=== PATIENT | male | born 1965 | race African-American/Black ===

== ENCOUNTER 2017-09-11 10:06 | Observation (INO) | payer BC, OTHER ==
[2017-09-11 10:48] LABS: #Basophils 0.1 thou/uL (0.0-0.2); #Eosinphils 0.2 thou/uL (0.0-0.7); #Lymphocytes 2.3 thou/uL (1.20-3.40); #Monocytes 0.3 thou/uL (0.11-0.59); #Neutrophils 3.8 thou/uL (1.40-6.50); %Basophils 1.1 % (0.0-1.0); %Eosinophils 2.4 % (0.0-10.0); %Lymphocytes 34.7 % (21.0-51.0); %Monocytes 4.5 % (0.0-10.0); %Neutrophils 57.4 % (42.0-75.0); Hemoglobin 13.5 g/dL (14.0-18.0); Mean Corpuscular HGB CONC 33.2 g/dL (32.0-36.0); Mean Corpuscular Hemoglobin 30.7 pg (27.0-31.0); Mean Corpuscular Volume 92.5 fl (80.0-94.0); Mean Platelet Volume 7.5 fL (7.4-10.4); Platelet Count 256 thou/uL (130-400); RBC Distribution Width 12.6 % (11.5-14.5); Red Blood Cell (RBC) Count 4.39 mill/uL (4.70-6.10); White Blood Cell (WBC) Count 6.6 thou/uL (4.8-10.8)
[2017-09-11 11:09] LABS: ALT (SGPT) 22 U/L (8-55); AST (SGOT) 27 U/L (5-34); Alkaline Phosphatase 68 U/L (40-150); Anion Gap 14 mmol/L (10-20); BUN (Urea Nitrogen) 13 mg/dL (8.4-25.7); Bilirubin, Total 0.4 mg/dL (0.2-1.2); CK (CPK) 201 U/L (30-200); Calc. Creatinine Clearance 0 mL/min (70-130); Calcium 9.9 mg/dL (7.8-10.44); Carbon Dioxide 26 mmol/L (22-29); Chloride 103 mmol/L (98-107); Estimated GFR-MDRD Greater than 90; Globulin 3.4 g/dL (2.4-3.5); Glucose 105 mg/dL (70-105); Potassium 3.5 mmol/L (3.5-5.1); Protein, Total 7.4 g/dL (6.0-8.3); Sodium 139 mmol/L (136-145)
[2017-09-11 11:14] LABS: CKMB 2.2 ng/mL (0-6.6)
--- NOTE | 2017-09-11 12:55 | RAD ---
FRONTAL VIEW CHEST: INDICATIONS: Chest pain. Dyspnea. COMPARISON: 12/09/2003 FINDINGS: There is no consolidation, effusion, or pneumothorax. The cardiac silhouette is within normal limits in size. The osseous structures are intact. IMPRESSION: No focal consolidation. POS: [facility]ALRETTE
[2017-09-11 14:41] LABS: Troponin I 0.016 ng/mL (< 0.028)
[2017-09-11] MEDS ORDERED: Acetaminophen 325 MG TAB PO PRN ×2 (14:47→14:48)
[2017-09-11] MEDS ORDERED: Ondansetron HCl/PF 4 MG/2 ML Vial IVP PRN (14:47)
[2017-09-11] MEDS ORDERED: Ondansetron ODT 4 MG TAB SL PRN (14:47)
[2017-09-11] MEDS ORDERED: Nitroglycerin 0.4 MG TAB (25 Tab Bottle) SL PRN (14:48)
[2017-09-11] MEDS ORDERED: Ondansetron ODT 4 MG TAB PO PRN (14:48)
[2017-09-11 14:54] VITALS: BMI 32.1
[2017-09-11 15:13] LABS: Phosphorus 3.7 mg/dL (2.3-4.7)
[2017-09-11] MEDS ORDERED: hydrALAZINE 20 MG/ML VIAL SLOW IVP PRN (15:19)
[2017-09-11 17:05] LABS: Troponin I Less than 0.010 ng/mL (< 0.028)
--- NOTE | 2017-09-11 18:35 | HP-2 ---
CODE STATUS: FULL. PRIMARY CARE PHYSICIAN: Bindu martin. ATTENDING: Mar Dennis MD RESIDENT: Jae Orantes MD CHIEF COMPLAINT: Shortness of breath and chest pressure. HISTORY OF PRESENT ILLNESS: This is a 52-year-old male who presents with shortness of breath and chest pressure since awakening this morning. It is not as normal. He states he was totally asymptomatic yesterday. He notes no nausea , vomiting, or diarrhea. He also notes no recent illness. He denies any real pain anywhere. He does state that he is able to do his full activity level. He says that the symptoms have not changed either at rest or when he is stressing himself. He does admit to some associated left arm throbbing during this time. He had similar episodes previously and was worked up at that time at outside facilities. He has no other complaints today. In the ER, he was given an aspirin 325 mg. PAST MEDICAL HISTORY: Significant for hypertension. PAST SURGICAL HISTORY: Right wrist injury and heart catheterization in 2013. ALLERGIES: None. MEDICATIONS: He is on losartan 100 mg, Lipitor 40 mg, and HCTZ 25 mg. He will be bringing his medications from home to confirm his dosages. FAMILY HISTORY: Hypertension. SOCIAL HISTORY: He had a [id number] smoking history, but he quit 13-1/2 years ago. Alcohol, he drinks more than 5 drinks per week, but less than 10. He drinks socially. He denies any drug use. 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 REVIEW OF SYSTEMS: GENERAL: He denies any fevers, chills, weight changes, night sweats, or fatigue. EYES: Denies any vision changes or eye pain. ENT: Denies nasal congestion, rhinorrhea, or sore throat. RESPIRATORY: Denies cough, congestion. He does admit to shortness of breath. CARDIOVASCULAR: He does admit to the chest pressure and palpitations. He denies any edema or orthopnea. GASTROINTESTINAL: Denies nausea, vomiting, diarrhea, constipation, abdominal pain, or GI bleeding. GENITOURINARY: Denies incontinence, dysuria, polyuria, or discharge. SKIN: He denies rashes, lesions, jaundice, itching. MUSCULOSKELETAL: He does admit to pain, swelling, and arthritis of his knees longstanding. NEUROLOGIC: Denies any weakness, numbness, syncope, or seizures. PSYCHIATRIC: He denies any anxiety or depression. PHYSICAL EXAMINATION: VITAL SIGNS: Blood pressure is 151/86, pulse was 102, respirations 22, temperature max 98.5, pulse ox 94% on room air, current weight is 99 kg. GENERAL: He is alert and oriented x4, well developed, and appropriately interactive. EYES: PERRLA. Conjunctivae within normal limits. ENT: Tympanic membranes are pearly feliciano without bulging or erythema. Nasal mucosa and oropharynx within normal limits. NECK: Supple. No lymphadenopathy. No thyromegaly. CARDIOVASCULAR: Regular rate and rhythm. No murmurs. No gallops. Radial and pedal pulses equal bilaterally. RESPIRATORY: Normal effort. No retractions. Clear to auscultation bilaterally. SKIN: Warm and dry. ABDOMEN: Soft, nontender to palpation. Bowel sounds present x4. No mass or distention. EXTREMITIES: No clubbing, cyanosis or edema. MUSCULOSKELETAL: Structure, tone, muscle strength, and range of motion within normal limits. NEUROLOGIC: No focal neurologic deficit. Sensation and cranial nerves II-XII grossly intact. GCS was 15. PSYCHIATRIC: Appropriate. LABORATORY DATA: White blood cell count of 6.6, platelet count 256, hemoglobin 13.5, hematocrit 40.6, MCV 92.5. Sodium 139, potassium 3.5, chloride 103, bicarbonate 26, BUN 13, creatinine 1.04, glucose 105, calcium 9.9, total protein 7.4, albumin 4, total bilirubin 0.4, AST 27, ALT 22, alkaline phosphatase 68. D-dimer is 0.32. CK was 201, CK-MB was 2.2. Troponin I is 0.04. EKG showed normal sinus rhythm. Chest x-ray showed nothing acute. ASSESSMENT AND PLAN: This is a 52-year-old male with a past medical history of hypertension presents with: 1. Typical Chest pain with an acute coronary syndrome rule out. We will get a fasting lipid panel, TSH, BNP. We will get a stress test in the morning, trend troponins, make him n.p.o. for that stress test, and a magnesium and phosphatase. We will also consider starting an aspirin going forward. HEART score 4 2. Hypertension. We will continue his home medications. 3. Elevated CK. We will repeat that with his troponins going forward. DISPOSITION/LENGTH OF HOSPITAL STAY: Observation and 1. Symptomatic medications will be provided. History and physical exam as well as management have been discussed with Dr. Dennis. LADI
--- NOTE | 2017-09-12 00:17 | HP ---
DATE OF SERVICE: 09/11/2017 CHIEF COMPLAINT: Shortness of breath and chest pressure. HISTORY OF PRESENT ILLNESS: The patient is a 52-year-old male with a past medical history of hyperte nsion, who presented to the ER with shortness of breath and chest pressure that begin after picking u p. The patient noted to be felt fine yesterday. Denies nausea, vomiting, and diarrhea. He did note left arm throbbing associated with the chest pressure. He states that he has had similar episodes l kev this and had a cardiac workup, but it is my understanding that his last stress test was over a ye ar ago. For the full past medical history and review of systems, please see Dr. Orantes's dictation. PHYSICAL EXAMINATION: VITAL SIGNS: Blood pressure 151/86, pulse 102, respiration rate 22, T-max 98.5, pulse ox 94% on room air. GENERAL: The patient is awake, alert, oriented, in no acute distress. CARDIOVASCULAR: Regular rate and rhythm without murmurs, gallops, or rubs. LUNGS: Clear to auscultation bilaterally without wheezing or rhonchi. ABDOMEN: Soft, nontender, nondistended, bowel sounds present. EXTREMITIES: No clubbing, cyanosis, or edema. LABORATORY AND X-RAY FINDINGS: 1. CBC: WBC of 6.6, hemoglobin 13.5, hematocrit 40.6, platelet count 256. 2. D-dimer 0.32. 3. CMP: Sodium 139, potassium 3.5, chloride 103, bicarbonate 26, BUN 13, creatinine 1.04, glucose 1 05, calcium 9.9, total bilirubin 0.4, AST 27, ALT 22, alkaline phosphatase 68, total protein 7.4, alb umin 4.0. 4. Cardiac enzymes: Troponin 0.016. CK of 201. 5. BNP less than 10. 6. EKG shows normal sinus rhythm. Chest x-ray shows no acute processes. ASSESSMENT AND PLAN: 1. Chest pain, rule out acute coronary syndrome: We will trend the patient's cardiac enzymes, check a lipid panel, TSH, magnesium and phosphatase. Patient's heart score is 4. Patient will be placed on aspirin and get a stress test in the morning. 2. Hypertension. Continue home medications. 3. Elevated CK: We will trend this. Please see the resident's dictation for the full history and p hysical, assessment and plan. I discussed the case in detail and repeated pertinent portions of the history and physical myself.
[2017-09-12 05:31] LABS: Cardiac Risk 3.2 (Less than 4.5)
--- NOTE | 2017-09-12 05:58 | PDOC.FM ---
- Subjective Subjective: Mr. Hale is doing well this morning. He has no complaints and there were no acute events overnight. He states that he has not had chest pain since it started to dissipate down in the ER prior to admission. He is scheduled for stress today. - Objective MAR Reviewed: Yes Vital Signs & Weight: Vital Signs (12 hours) Temp Pulse Resp BP BP Pulse Ox 09/12/17 03:56 97.8 F 61 14 131/84 96 09/11/17 20:00 98.4 F 72 16 09/11/17 19:30 98.4 F 72 16 136/71 95 I&O: 09/10/17 09/11/17 09/12/17 06:59 06:59 06:59 Intake Total 1030 Balance 1030 Result Diagrams: 09/11/17 10:39 09/11/17 10:39 EKG Reviewed by me: Yes (NSR) <Hasmukh Maharaj - Last Filed: 09/12/17 07:58> - Objective Vital Signs & Weight: Vital Signs (12 hours) Temp Pulse Resp BP BP Pulse Ox 09/12/17 08:39 98.0 F 62 20 09/12/17 08:02 98.0 F 62 20 139/77 98 09/12/17 03:56 97.8 F 61 14 131/84 96 I&O: 09/11/17 09/12/17 09/13/17 06:59 06:59 06:59 Intake Total 1030 Balance 1030 Result Diagrams: 09/11/17 10:39 09/11/17 10:39 <Jeffy Barriga - Last Filed: 09/12/17 11:47> Phys Exam - Physical Examination Constitutional: NAD HEENT: moist MMs, sclera anicteric Neck: no JVD, supple, full ROM Respiratory: no wheezing, no rales, no rhonchi, clear to auscultation bilateral Cardiovascular: RRR, no significant murmur, no rub Gastrointestinal: soft, non-tender, no distention Musculoskeletal: no edema Neurological: non-focal, normal sensation, moves all 4 limbs Psychiatric: normal affect, A&O x 3 <Hasmukh Maharaj - Last Filed: 09/12/17 07:58> Dx/Plan (1) Chest pain Code(s): R07.9 - CHEST PAIN, UNSPECIFIED Status: Acute Plan: 1) Chest pain r/o ACS: Troponins have downtrended to negative, BNP less than 10 , TSH is 0.379, CK 201, mag and phos normal. Cont ASA daily. -stress test today (2) Hypertension Code(s): I10 - ESSENTIAL (PRIMARY) HYPERTENSION Status: Acute Plan: Continue home meds, BPs have been controlled here (3) Elevated CK Status: Acute Plan: CK at 201, continue monitoring symptoms No need to recheck at this time <Hasmukh Maharaj - Last Filed: 09/12/17 07:58> Attending Addendum - Attending Addendum I personally evaluated the patient and discussed the management with Dr. Maharaj. I agree with the History, Examination, Assessment and Plan documented above with any addition or exceptions noted below. Patient admitted with chest pain with possible cardiac nature type pain. He has had an abnormal stress apparently several years ago but a normal heart cath. He is undergoing nuclear stress testing today. If normal, can have outpatient follow up with cardiology. If abnormal, will need cardiology consult. Further mgmt per stress test results. <Jeffy Barriga - Last Filed: 09/12/17 11:47>
[2017-09-12] MEDS ORDERED: Atorvastatin Calcium 40 MG TAB PO SCH (09:00)
[2017-09-12] MEDS ORDERED: Hydrochlorothiazide 25 MG TAB PO SCH (09:00)
[2017-09-12] MEDS ORDERED: Losartan Potassium 25 MG TAB PO SCH (09:00)
[2017-09-12 12:16] VITALS: BP 135/66; TEMP 97.8
--- NOTE | 2017-09-12 12:28 | NM ---
NUCLEAR MEDICINE CARDIAC STRESS TEST WITH EJECTION FRACTION: HISTORY: Chest pain. COMPARISON: Nuclear medicine cardiac stress test 2009. TECHNIQUE: A stress MRI was performed after the intravenous administration of 33 and 9 mCi of Technetium 99m ses tamibi, respectively. FINDINGS: No reversible perfusion defect. No scar. The wall motion appears normal. The calculated ejection fraction is 53%. IMPRESSION: No evidence of ischemia or scar. Ejection fraction 53%. POS: NAYELI
--- NOTE | 2017-09-12 23:00 | DIS-2 ---
DATE OF ADMISSION: 09/11/2017 DATE OF DISCHARGE: 09/12/2017. ADMITTING ATTENDING: Dr. Mar Dennis. DISCHARGE ATTENDING: Jeffy Barriga MD RESIDENT: Hasmukh Maharaj MD CONSULTS: None. PROCEDURES: 1. Chest x-ray on 09/11/2017, no focal consolidation, effusion or pneumothorax. 2. Nuclear medicine cardiac stress test with ejection fraction. Impression: No evidence of ischemi a or scar, ejection fraction 53%, no reversible perfusion defect. PRIMARY IMPRESSION: 1. Chest pain, rule out acute coronary syndrome. 2. Hypertension. 3. Elevated CK. DISCHARGE MEDICATIONS: 1. Hydrochlorothiazide 25 mg p.o. daily. 2. Lipitor 40 mg p.o. daily. 3. Losartan potassium 100 mg p.o. daily. 4. Nitroglycerin 0.4 mg sublingual every 5 minute p.r.n. 5. Aspirin 81 mg p.o. daily. DISCONTINUED MEDICATIONS: 1. Tylenol 650 mg p.o. q.4 hours p.r.n. 2. Zofran 4 mg sublingual q.6 hours p.r.n. HISTORY OF PRESENT ILLNESS AND HOSPITAL COURSE: Jose Hale is a 52-year-old male with past medi kiesha history of hypertension who presented to the ED with shortness of breath and chest pressure since awakening the morning of presentation. Patient states that this was not a normal pain for him. He states that he was totally asymptomatic yesterday. He stated the pain was substernal, pressure-like pain and his left arm felt funny. He states that he did not have any nausea, vomiting, diarrhea, or diaphoresis and says that he is able to do full activities without worsening the pain. The symptoms did not change when he was at rest or stressing himself. In the ER, he was given aspirin 325 mg. He has a history of heart catheterization in 2013 that did not require any stent placement. On admissi on, the patient's blood pressure is 151/86, pulse was 102, respiratory rate was 22, temperature 98.5, pulse ox 94% on room air. Physical exam was unremarkable. Labs were significant for CK-MB of 2.2, troponin of 0.04, CK of 201. EKG showed normal sinus rhythm. Chest x-ray showed no acute cardiopulm onary process. The patient was admitted for acute coronary syndrome rule out. D-dimer was normal. TSH was normal at 0.3791. Fasting lipid panel showed triglycerides 84, total cholesterol 118, LDL ca lculated 64, HDL 37. Troponins were negative x3. Patient performed nuclear medicine stress test in the morning of 09/12/2017 which was normal showing no myocardial perfusion defect. Ejection fraction of 53%. Patient was cleared for discharge that day, the chest pain did not occur throughout the ent victor hugo admission. We continued him on his home medications. Recommended to take daily aspirin and sent him a prescription for p.r.n. nitroglycerin. Patient was relieved that the chest pain was not cardi ac in origin and appreciated his care. DISPOSITION: Stable. DISCHARGE INSTRUCTIONS: 1. Location: Home. 2. Diet: Heart healthy. 3. Activity: As tolerated. 4. Follow up with primary care physician over the next 1-2 weeks for routine chronic medical conditi on followup.
== END 2017-09-12 15:19 | disposition home or self-care (01) ==
LOC: ERS 10:06 → 2SW 14:30
PROVIDERS: ADMIT Family Medicine; ATTEND Family Medicine
DX: R07.89 Other chest pain (principal); I10 Essential (primary) hypertension; R74.8 Abnormal levels of other serum enzymes; Z79.899 Other long term (current) drug therapy; Z87.891 Personal history of nicotine dependence; Z98.890 Other specified postprocedural states
CPT/HCPCS: 36415; 71045; 78452; 80053; 80061; 82553; 83735; 83880; 84100; 84443; 84484; 85025; 85379; 93005; 93017; 94760; A9500; G0378

== ENCOUNTER 2017-10-15 16:33 | Emergency (ER) | payer OTHER ==
--- NOTE | 2017-10-15 19:30 | RAD ---
PA AND LATERAL CHEST: 10/15/17 HISTORY: Cough and chills. COMPARISON: 12/24/15 exam. Heart size and mediastinum are within normal limits. The lungs are clear of infiltrates. No significa nt bony findings. IMPRESSION: No active intrathoracic disease. POS: [facility]
[2017-10-15] MEDS ORDERED: Acetaminophen 500 MG TAB ONE (19:35)
== END 2017-10-15 19:35 | disposition home or self-care (01) ==
LOC: ERS 16:33
DX: J11.1 Influenza due to unidentified influenza virus with other respiratory manifestations (principal); Z77.22 Contact with and (suspected) exposure to environmental tobacco smoke (acute) (chronic); Z79.899 Other long term (current) drug therapy
CPT/HCPCS: 71046; 87804

== ENCOUNTER 2023-07-08 14:09 | Outpatient (CLI) | payer BC | END 2023-07-08 14:10 | disposition home or self-care (01) | LOC: BICCT 14:09 | PROVIDERS: ATTEND Family Medicine | DX: R51.9 Headache, unspecified (principal) | CPT/HCPCS: 70450 ==